=== PATIENT | male | born 1950 | race Caucasian/White ===

== ENCOUNTER 2016-08-05 11:13 | Outpatient (CLI) | payer OTHER ==
[2015-04-24 11:52] VITALS: BP 119/68
--- NOTE | 2016-08-05 14:18 | Diagnostic Imaging Report ---
[facility] [id number] [facility].[address] [address] Report Submission Date: Aug 05, 2016 1:11:15 PM MARKET REPORTER Patient Study Name: SRIRAM LING Date: Aug 05, 2016 11:29:14 AM MARKET REPORTER Modality Type: CR Gender: M Description: CHEST : 52 Institution: [facility] Physician KIERAN SORIANO - OP Chest -two views CLINICAL HISTORY: Cough for 10 days. FINDINGS: Examination of the chest in PA and lateral views with no prior film for comparison demonstrates prominence of the interstitial markings in the right chest that appears chronic. There is no coalescent infiltrate. Cardiac silhouette is prominent and the aorta is atherosclerotic. Degenerative changes are seen throughout the thoracic vertebrae. IMPRESSION: Aortic atherosclerosis. Chronic appearing interstitial changes in the right chest. No coalescent infiltrate. Electronically signed on Aug 05, 2016 1:11:15 PM MARKET REPORTER by: Sung ALDRIDGE
== END 2016-08-05 11:14 ==
LOC: RAD 11:13
PROVIDERS: ATTEND Family Medicine
DX: R05 Cough (principal)
CPT/HCPCS: 71020

== ENCOUNTER 2016-11-26 12:46 | Outpatient (CLI) | payer MEDICARE ==
[2015-04-24 11:52] VITALS: BP 119/68
--- NOTE | 2016-11-26 15:44 | Diagnostic Imaging Report ---
GONZÁLEZ CARR - FRANK [facility] [id number] [facility].[address] [address] Report Submission Date: November 26, 2016 3:09:03 PM CDT Patient Study Name: SRIRAM LING Date: November 26, 2016 1:01:30 PM CDT Modality Type: US Gender: M Description: US RETROPERITONEAL LIMIT : 51 Institution: [facility] Physician: GONZÁLEZ CARR - FRANK Renal ultrasound Clinical history: Renal cyst seen on outside MRI . Right kidney measures 11.4 x 5.9 x 4.6 cm total volume of 161 ml. No hydronephrosis or solid masses . Left kidney measures 11.7 x 6.4 x 5.7 cm with total volume of 223 ml. No hydronephrosis. Simple benign looking cyst in the lower pole of the left kidney measures 4.3 x 3.7 cm . Much smaller 1.1 cm cyst in the lower pole of the left kidney . 3rd cyst measures 7 mm. Impression: Multiple benign looking left renal cysts Otherwise normal renal ultrasound Electronically signed on November 26, 2016 3:09:03 PM CDT by: Vladislav ALDRIDGE
== END 2016-11-26 12:47 ==
LOC: RAD 12:46
PROVIDERS: ATTEND Family Medicine
DX: N28.1 Cyst of kidney, acquired (principal)
CPT/HCPCS: 76775

== ENCOUNTER 2017-01-06 | Outpatient (CLI) | payer MEDICARE ==
--- NOTE | 2017-01-07 14:26 | HISTORY AND PHYSICAL REPORT ---
REFERRING PHYSICIAN: Dr. John Gu Dear Dr. Gu: HISTORY OF PRESENT ILLNESS: I had the opportunity of seeing Marino Alvarez today as an outpatient at [facility]. As you are aware, Marino is a very nice 66-year-old white male hernandez. He says he remains very active. Sometime in September of this year, he began having a marked exacerbation of back and leg pain. He was subsequently seen and evaluated at the [facility] by Dr. Arce receiving an L2-L3 epidural steroid injection on November 01, 2016. He said the injection markedly improved in his condition but he still has some back pain and leg pain and he has some limitation. I asked him further if he was still having enough discomfort that he felt that he needed a repeat injection. He said, "No," and that he felt he was doing quite well in that respect and he did not need treatment today. He does complain of back pain. He is up and active. He tells me that the only thing that has worked for him in the past is hydrocodone. He is on gabapentin and it does help with his leg pain. He has had physical therapy, chiropractic manipulation, and the notable injection. He has been on hydrocodone, tramadol, and Neurontin in the past. His MRI is significant for a left paracentral L2-L3 disk protrusion with lateral recess stenosis on the left and a sequestered extruded disk behind the body of L3 on the right causing some right subarticular stenosis. PAST MEDICAL HISTORY: 1. Ulcerative colitis. 2. Ruptured/bulged disk. 3. Angioplasty. 4. Back pain. PAST SURGICAL HISTORY: Right arm artery repair. CURRENT MEDICATIONS: 1. Primidone 25 mg daily. 2. Balsalazide disodium 225 mg t.i.d. 3. Aspirin 81 mg daily. 4. Gabapentin 300 mg at bedtime. ALLERGIES: No known drug allergies. SOCIAL HISTORY: Patient currently chews tobacco. He denies alcohol or recreational drug use. He is and has been for 46 years. He has 2 children. He lives at home with his . He worked as a track repair laborer. He went to school through the 11th grade. He is not currently employed. FAMILY HISTORY: Positive for cancer in the patient's father. Heart attack in the patient's mother. Two siblings with strokes. REVIEW OF SYSTEMS: Positive for weight loss and constipation. Patient currently is receiving injections at [facility] for his current pain complaint and has done chiropractic manipulations which made his pain worse. PHYSICAL EXAMINATION: General: The patient is well nourished, well developed, and in no apparent distress. Awake, alert, and oriented. HEENT: Pupils are equal, round, and reactive to light and accommodation. Extraocular movements intact. No facial droop. Neck: There is full range of motion of the cervical spine. No evidence of adenopathy. Thyroid is nontender, no enlarged. Carotids are without bruits. Chest: Clear to auscultation bilaterally. Normal. Chest excursion. Heart: Regular rate and rhythm without murmur. Abdomen: Benign. Normoactive bowel sounds. Motor/sensory: Intact in the upper and lower extremities. Moves all extremities freely. Back: There is negative straight leg raise. Negative assisted extension and extension rotation. Strength is 5/5 and equal in the lower extremities. ASSESSMENT: 1. L2-L3 disk protrusion in the left paracentral. 2. Sequestered extruded disk on right side of L3 vertebral body causing bilateral subarticular stenosis, now improved following an epidural injection. PLAN: At this point, as I think he could use some pain medication, I am going to start him on tramadol and have him use Tylenol in conjunction, which may make this medication more effective. I would be glad to follow him up if he needs treatment, but at this point, it seems that he is doing better after the injection at the [facility]. Dr. Gu, thank you again for allowing me to take part in the care of this nice gentleman. I appreciate the opportunity to take part in the care of your patients. cc: Dr. John ALDRIDGE
== END 2017-01-06 14:24 ==
DX: M51.86 Other intervertebral disc disorders, lumbar region (principal)
CPT/HCPCS: 99213; G0463

== ENCOUNTER 2017-02-03 12:21 | Outpatient (CLI) | payer MEDICARE ==
[2015-04-24 11:52] VITALS: BP 119/68
[2017-02-03 12:38] LABS: BASOPHILS % 0.7 (0.0-1.5); EOSINOPHILS % 2.7 % (0.0-6.8); MEAN CORPUSCULAR VOLUME 87.2 fl (80.0-100.0); MONOCYTES % 4.6 % (0.0-11.0); NEUTROPHILS # 6.1 # k/uL (1.4-7.7)
[2017-02-03 13:04] LABS: eGFR (African) > 60; eGFR (Non-African) > 60
== END 2017-02-03 12:22 ==
LOC: LAB 12:21
PROVIDERS: ATTEND Family Medicine
DX: Z51.81 Encounter for therapeutic drug level monitoring (principal); N40.1 Benign prostatic hyperplasia with lower urinary tract symptoms
CPT/HCPCS: 36415; 80053; 84153; 85025

== ENCOUNTER 2017-03-17 14:09 | Outpatient (CLI) | payer MEDICARE ==
[2015-04-24 11:52] VITALS: BP 119/68
== END 2017-03-17 14:10 ==
LOC: LABRHC 14:09
PROVIDERS: ATTEND Family Medicine
DX: R07.0 Pain in throat (principal)
CPT/HCPCS: 87070

== ENCOUNTER 2017-09-15 15:40 | Outpatient (CLI) | payer MEDICARE ==
[2015-04-24 11:52] VITALS: BP 119/68
--- NOTE | 2017-09-15 16:56 | Diagnostic Imaging Report ---
KIERAN SORIANO [facility] [address] [facility] [address] [address] Report Submission Date: Sep 15, 2017 4:20:30 PM PATIENT RESOURCE SPECIALIST Patient Study Name: SRIRAM LING Date: Sep 15, 2017 3:56:25 PM PATIENT RESOURCE SPECIALIST Modality Type: DX Gender: M Description: CHEST : 52 Institution: [facility] Physician: KIERAN SORIANO Pa and lateral chest Clinical history : Coughing Technique pa and lateral upright Findings: Lung molina are hyperinflated. There is thoracic spondylosis. Cardiomegaly and aortic atherosclerosis is present. Right hemidiaphragm is elevated. Increased reticular markings are present in the lung bases. Multilevel thoracic spondylosis is present. There is no pleural effusion. Impression: Hyperinflation Increased reticular markings in the lung bases possible fibrosis Cardiomegaly and aortic atherosclerosis Electronically signed on Sep 15, 2017 4:20:30 PM PATIENT RESOURCE SPECIALIST by: Sunil ALDRIDGE
== END 2017-09-15 15:42 ==
LOC: RAD 15:40
PROVIDERS: ATTEND Family Medicine
DX: R05 Cough (principal)
CPT/HCPCS: 71046

== ENCOUNTER 2018-08-21 09:56 | Outpatient (CLI) | payer MEDICARE ==
[2015-04-24 11:52] VITALS: BP 119/68
[2018-08-21 10:56] LABS: eGFR (Non-African) > 60
== END 2018-08-21 10:08 ==
LOC: LAB 09:56
PROVIDERS: ATTEND Nurse Practitioner Family
DX: I10 Essential (primary) hypertension (principal); E78.5 Hyperlipidemia, unspecified; R53.83 Other fatigue; F52.0 Hypoactive sexual desire disorder; R39.198 Other difficulties with micturition; N40.1 Benign prostatic hyperplasia with lower urinary tract symptoms
CPT/HCPCS: 36415; 80053; 80061; 84153; 84403; 84439; 84443; 84481

== ENCOUNTER 2019-03-08 16:37 | Outpatient (CLI) | payer MEDICARE ==
[2015-04-24 11:52] VITALS: BP 119/68
[2019-03-08 16:53] LABS: BASOPHILS % 0.5 % (0.0-1.5); NEUTROPHILS # 4.9 # k/uL (1.4-7.7)
== END 2019-03-08 16:40 ==
LOC: LABRHC 16:37
PROVIDERS: ATTEND Family Medicine
DX: R53.83 Other fatigue (principal)
CPT/HCPCS: 85025; 85651; 86431

== ENCOUNTER 2019-04-12 09:58 | Day surgery (SDC) | payer MEDICARE ==
[2015-04-24 11:52] VITALS: BP 119/68
[~2019-04-12 09:58] MED LIST: LACTATED RINGERS 1,000 ML IV.SOLN IV ONE; LIDOCAINE HCL 2% PF 100MG/5ML VIAL IJ ONE; PROPOFOL 200 MG/20 ML VIAL IV ONE
--- NOTE | 2019-04-14 12:25 | GI Report ---
DATE OF PROCEDURE: 04/12/2019 REFERRING PHYSICIAN: Dr. Gu. PROCEDURE PERFORMED: Colonoscopy with biopsies. SURGEON: Maribel Hinton M.D., Tay INDICATION FOR PROCEDURE: 68-year-old man from [place] has had colitis for many years. He is on maximum dose of balsalazide, 9 a day and still having episodes of diarrhea and some bleeding. His last colonoscopy was 5 years ago. Family history of colon cancer in a brother. PROCEDURE MEDICATION: Propofol, as per Anesthesia. DESCRIPTION OF PROCEDURE: The Olympus video colonoscope was advanced into the rectum. The patient has evidence of pancolitis. There is ulceration, friability all the way from the rectum to the cecum. The terminal ileum is normal. The patient has pseudopolyps, hundreds of them throughout his whole colon, particularly bad in the transverse colon and ascending colon. Again, the terminal ileum looks normal. We did biopsies in the right colon, submitted to pathology, and biopsies throughout the transverse colon, targeted biopsies submitted to pathology, targeted biopsies in the left colon including sigmoid and rectum within that in a third jar. The patient tolerated the procedure well. FINDINGS: Severe pancolitis, looks worse than 5 years ago. RECOMMENDATIONS: He is on maximum dose of melsalamine so pending the biopsies I think we are probably going to need to consider a biologic therapy since the pseudopolyps are a lot worse than 5 years ago. He is to give us a call next week after the pathology comes back, and further recommendations pending. May need his colon looked at in another 3-5 years. MARIBEL HINTON M.D., F.A.CAzucenaP. DEVON/carroll Job#: [id number] Cc: Dr. Brittanie ALDRIDGE
== END 2019-04-12 12:41 | disposition home or self-care (01) ==
LOC: OPSURG 09:58
PROVIDERS: ATTEND Internal Medicine Gastroenterology
DX: Z80.0 Family history of malignant neoplasm of digestive organs (principal)
CPT/HCPCS: 45380; J2001; J2704; J7120